=== PATIENT | male | born 2000 | race Caucasian/White ===

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

== ENCOUNTER 2019-03-02 21:33 | Emergency (ER) | payer BC, OTHER ==
[~2019-03-02] VITALS: Ht 185.4 cm; Wt 97.5 kg
== END 2019-03-02 22:53 | disposition home or self-care (01) ==
LOC: ER 21:33
DX: L23.7 Allergic contact dermatitis due to plants, except food (principal); Z91.030 Bee allergy status
CPT/HCPCS: 96372; 99283-25; J3301

== ENCOUNTER → 2020-01-28 | Outpatient (CLI) | payer BC, OTHER ==
[2020-01-29 15:15] LABS: CORONAVIRUS (COVID19) CSH-NRL Negative (Negative)
== END | disposition home or self-care (01) ==
LOC: LAB EV 09:30 → LAB SHORT 09:30
PROVIDERS: Physician Assistant
DX: J06.9 Acute upper respiratory infection, unspecified (principal); Z20.828 Contact with and (suspected) exposure to other viral communicable diseases
CPT/HCPCS: U0003

== ENCOUNTER 2020-06-29 13:59 | Emergency (ER) | payer BC, OTHER ==
[~2020-06-29] VITALS: Ht 185.4 cm; Wt 88.5 kg
[2020-06-29] MEDS ORDERED: AMPDEX10 PO (14:09)
[2020-06-29] MEDS ORDERED: LAMICTAL200 MG PO (14:10)
[2020-06-29] MEDS ORDERED: TEMOVATE15 G1 TOP (14:31)
== END 2020-06-29 14:38 | disposition home or self-care (01) ==
LOC: ER 13:59
DX: L23.7 Allergic contact dermatitis due to plants, except food (principal); F17.210 Nicotine dependence, cigarettes, uncomplicated; Z91.030 Bee allergy status
CPT/HCPCS: 99282; A9270

== ENCOUNTER 2020-08-19 21:52 | Emergency (ER) | payer BC, OTHER ==
[~2020-08-19] VITALS: Ht 185.4 cm; Wt 81.7 kg
[~2020-08-19 21:52] MED LIST changes: +AMPDEX10 PO; +LAMICTAL200 MG PO; +TEMOVATE15 G1 TOP
[2020-08-20] MEDS ORDERED: IBUP600 PO (01:29)
== END 2020-08-20 01:52 | disposition home or self-care (01) ==
LOC: ER 21:52
DX: S93.432A Sprain of tibiofibular ligament of left ankle, initial encounter (principal); F17.210 Nicotine dependence, cigarettes, uncomplicated; Z91.030 Bee allergy status; Z79.899 Other long term (current) drug therapy; V28.9XXA Unspecified motorcycle rider injured in noncollision transport accident in traffic accident, initial encounter; Y92.410 Unspecified street and highway as the place of occurrence of the external cause
CPT/HCPCS: 29515; 73590; 73610; 99283-25; L1906